=== PATIENT | female | born 1985 | race Hispanic/Latino ===

== ENCOUNTER 2024-10-10 12:52 | Emergency (ER) | payer OTHER ==
[~2024-10-10] VITALS: Ht 162.6 cm; Wt 68.0 kg
[~2024-10-10 12:52] MED LIST: CIPRO500 MG PO; LOPRESSOR25 MG PO; PROMETHAZINE HC25 M1 PO; TYLENOL # 31 EA PO; TYLENOL WITH C1 EACH PO
[2024-10-10 13:06] VITALS: TEMP 97.5
[2024-10-10 13:21] LABS: BASOPHILS # (AUTO) 0.1 (0.0-0.1); BASOPHILS % 0.7 % (0.0-1.0); EOSINOPHILS # (AUTO) 0.1 (0.0-0.4); EOSINOPHILS % 1.2 % (0.0-6.0); HEMATOCRIT 35.9 % (34.2-44.1); HEMOGLOBIN 10.1 g/dL (12.0-16.0); LYMPHOCYTES # (AUTO) 1.6 (1.0-3.2); LYMPHOCYTES % 19.2 % (18.0-39.1); MEAN CORPUSCULAR HEMOGLOBIN 21.3 pg (28-32); MEAN CORPUSCULAR HGB CONC 28.1 g/dL (31-35); MEAN CORPUSCULAR VOLUME 75.6 fL (81-99); MONOCYTES # (AUTO) 0.4 (0.2-0.8); MONOCYTES % 4.7 % (4.4-11.3); NEUTROPHILS # (AUTO) 6.2 (2.1-6.9); NEUTROPHILS % 73.8 % (38.7-80.0); PLATELET COUNT 490 x10e3/uL (140-360); RED BLOOD COUNT 4.75 x10e6/uL (3.6-5.1); RED CELL DISTRIBUTION WIDTH 18.4 % (11.7-14.4); WHITE BLOOD COUNT 8.33 x10e3/uL (4.8-10.8)
[2024-10-10 13:28] LABS: INR 1.01; PROTHROMBIN TIME 13.9 seconds (11.9-14.5)
[2024-10-10 13:29] LABS: PARTIAL THROMBOPLASTIN TIME 32.6 seconds (23.8-35.5)
[2024-10-10 13:36] LABS: ALANINE AMINOTRANSFERASE 12 IU/L (0-55); ALBUMIN 3.2 g/dL (3.5-5.0); ALKALINE PHOSPHATASE 60 IU/L (40-150); ANION GAP 13.2 mmol/L (8-16); BILIRUBIN,TOTAL 0.3 mg/dL (0.2-1.2); BLOOD UREA NITROGEN 8 mg/dL (7-26); BUN/CREATININE RATIO 9 (6-25); CALCIUM 8.3 mg/dL (8.4-10.2); CARBON DIOXIDE 19 mmol/L (22-29); CHLORIDE 110 mmol/L (98-107); CREATINE KINASE 108 IU/L (29-168); CREATININE, SERUM 0.85 mg/dL (0.57-1.11); EST GLOMERULAR FILTRATION RATE 89 ML/MIN (>=60); GLUCOSE 134 mg/dL (74-118); MAGNESIUM 1.7 MG/DL (1.3-2.1); SODIUM 139 mmol/L (136-145); TOTAL PROTEIN 6.5 g/dL (6.5-8.1)
[2024-10-10 13:38] LABS: POTASSIUM 3.2 mmol/L (3.5-5.1)
[2024-10-10 13:41] LABS: TROPONIN I 0.014 ng/mL (0-0.300)
[2024-10-10] MEDS: SODIUM CHLORIDE 0.9% 1000ML 1,000 ML IV STA (13:58)
[2024-10-10 14:45] VITALS: PULSE 70; RESP 17; O2SAT 100
== END 2024-10-10 15:00 | disposition home or self-care (01) ==
LOC: ER 13:02
DX: R42 Dizziness and giddiness (principal); D64.9 Anemia, unspecified; R55 Syncope and collapse
CPT/HCPCS: 36415; 71045; 80053; 82550; 83735; 84484; 84702; 85025; 85610; 85730; 86850; 86900; 93005; 99284; J7030